=== PATIENT | female | born 1975 | race African-American/Black ===

== ENCOUNTER 2021-02-20 10:10 | Emergency (ER) | payer BC ==
[2021-02-21 08:01] LABS: SARS-CoV-2 PCR by NAA Not Detected (NotDetected)
== END 2021-02-20 11:00 | disposition home or self-care (01) ==
LOC: NAV ERS 10:10
DX: J06.9 Acute upper respiratory infection, unspecified (principal); Z20.822 Contact with and (suspected) exposure to COVID-19
CPT/HCPCS: 99283; U0003; U0005